=== PATIENT | female | born 1985 | race Hispanic/Latino ===

== ENCOUNTER 2020-01-11 10:14 | Emergency (ER) | payer BC ==
--- OUTSIDE RECORDS SUMMARY | 2020-01-11 10:16 | XMS REPORT ---
:1985 Author Organization [facility] Address [address] [place] [address] Care Team Providers Name Role Phone Unavailable Unavailable Unavailable Payers Payer Name Policy Type Policy Number Effective Date Expiration Date Problems This patient has no known problems. Allergies, Adverse Reactions, Alerts This patient has no known allergies or adverse reactions. Medications This patient has no known medications. Results Test Description Test Time Test Comments Text Results Atomic Results Result Comments - US 2019-10-02 Patient Name: MIC SAAVEDRA Unit No: [id number] PREG 12:07:00 EXAMS: CPT CODE: AFTER [id number] PREG AFTER 1ST TRI [address] [place] [address]'[facility] TRI [address] [place] [place], [place] [address] OBSTETRICAL ULTRASOUND REPORT Pat. Name: MIC SAAVEDRA Pat. No: [id number] Study Date: 10/02/2019 10:51am , Age: 06 1985, 34 Pregnancies: 7, Para 2, Ab 4 LMP: 06/01/2019 GA by LMP: 17w4d GA by US: 17w5d GA Selected: 17w4d (LMP) BETO: 03/07/2020 Referring MD: KATHERYN HAWKINS [employer] Laminator: Miya Enriquez RDMS CPT4: [id number] Admitting MD: KATHERYN HAWKINS Hist/Ind: 1ST SCAN ANATOMY MEASUREMENTS AGE GROWTH EVALUATION Measurement GA Range Srce %for GA Ratios ----- ---- ------- BPD 4.0 cm 18w0d (12c2n-64m0i) Hadl BPD 68% FL/BPD 0.65 HC 14.7 cm 17w5d (74y6v-37f1v) Hadl HC 55% FL/AC 0.22 APD 3.7 cm APD HC/AC 1.25 (1.08 - 1.27) TAD 3.8 cm TAD CI 0.82 (0.70 - 0.86) AC 11.8 cm 17w1d (67h7i-70c7q) Hadl AC 40% FL 2.6 cm 17w4d (42z0q-12j4y) Hadl FL 48% HL 2.5 cm 17w6d (55j2d-46x8l) Robbin HL 54% GA for sonogram 17w5d (95x9z-71x3e) Weight Estimate: based on (HL,BPD,HC,AC,FL) Avg Weight: 207 gm (177-237) Hadlock : 0lbs, 7oz Cervical Length: 3.9 cm Heart Rate: 162 bpm MATERNAL ANATOMY Ovaries LxHxW (cm) Right 3.1 x 2.0 x 3.0 Vol: 9.7cc Left 2.3 x 1.4 x 1.4 Vol: 2.4cc Ovarian Cysts LxHxW (cm) R1: 1.2 x 1.0 x 1.8 Desc: Corpus Luteum CLINICAL SUMMARY Type of Gestation: Menjivar Intrauterine in breech presentation. size is appropriate for gestational age. growth: Consistent with normal growth motion and organs seen: [facility] NAME: MIC SAAVEDRA Radiology Department PHYS: Katheryn Ruby [address] : 1985 AGE: 34 SEX: [place], [place] [address] LOC: Maria DALICIA PHONE #: [phone] EXAM DATE: 10/02/2019 STATUS: REG CLI FAX #: [phone] RAD NO: Page 1 Signed Report (CONTINUED) Patient Name: MIC SAAVEDRA Unit No: [id number] EXAMS: CPT CODE: [id number] US PREG AFTER 1ST TRI 10579 <Continued> somatic activity observed body and limb movements seen Four chamber heart observed Left ventricular outflow tract (LVOT) seen Right ventricular outflow tract (RVOT) seen Regular cardiac rhythm observed Normal intracranial anatomy seen Umbilical cord insertion in fetus seen stomach, Renal Fossa, Bladder and Spine seen Three vessel umbilical cord noted abnormalities observed: None seen at this exam Placental location: Anterior Placental maturity : Grade 2 There is no evidence of placenta previa. Amniotic fluid volume is normal. Uterus and adnexa: No significant abnormality is seen. Thank you for allowing us to participate in the care of this patient. Mau Osorio M.D. Electronic Signature 10/02/2019 12:07pm at 1207 Reported and signed by: Melania Osorio MD CC: Katheryn Hawkins MD Technologist: Miya Enriquez RDMS Probe: Trnscrbd D/ (1207) [email or web address].[email or web address] Orig Print D/T: S: 10/02/2019 (1207) [facility] NAME: MIK SAAVEDRALYN Radiology Department PHYS: Katheryn [address] : 1985 AGE: 34 SEX: [place], [place] [address] LOC: F.RAD PHONE #: [phone] EXAM DATE: 10/02/2019 STATUS: REG CLI FAX #: [phone] RAD NO: Page 2 Signed Report Patient Name: MIC SAAVEDRA Unit No: [id number] EXAMS: CPT CODE: [id number] US PREG AFTER 1ST TRI [address] <Continued> [facility] NAME: MIK SAAVEDRALYN Radiology Department PHYS: Lidia Rubyaret [address] : 1985 AGE: 34 SEX: F [place], [place] [address] LOC: Maria DALICIA PHONE #: [phone] EXAM DATE: 10/02/2019 STATUS: REG CLI FAX #: [phone] RAD NO: Page 3 Signed Report
[2020-01-11] MEDS ORDERED: NA CHLORIDE 0.9% 1,000 ML ONE (10:36)
[2020-01-11 10:42] LABS: Absolute Lymphocytes (CBC) 1.5 K/uL (0.7-4.9); Basophils % 0.3 % (0-1.3); Lymphocytes % 21.1 % (15.3-44.8); MPV 7.8 fL (7.6-11.3); RBC Red Blood Cell Count 3.83 M/uL (3.86-4.86)
[2020-01-11 11:01] LABS: ALT/SGPT 12 U/L (12-78); AST/SGOT 13 U/L (15-37); Albumin 2.6 g/dL (3.4-5.0); Alkaline Phosphatase 57 U/L (45-117); BUN Blood Urea Nitrogen 7 mg/dL (7-18); Bicarbonate 22 mmol/L (21-32); Bilirubin Direct < 0.1 mg/dL (0-0.2); Bilirubin Total 0.3 mg/dL (0.2-1.0); Glucose Level 82 mg/dL (74-106); Lipase 141 U/L (73-393); Potassium 3.4 mmol/L (3.5-5.1); Protein, Total 6.3 g/dL (6.4-8.2); Sodium Level 139 mmol/L (136-145)
[2020-01-11 11:04] LABS: Urine Blood NEGATIVE (NEG); Urine Glucose NEGATIVE (NEG); Urine Protein NEGATIVE (NEG); Urine pH 6.5 (5.0-7.0)
--- NOTE | 2020-01-11 11:28 | ER ---
Nurse's Notes [facility] Name: Yvonne Jarrett Age: 34 yrs Sex: Female : 1985 Arrival Date: 01/11/2020 Time: 10:18 Bed 18 Private MD: Diagnosis: related conditions, unspecified, third trimester;Maternal care for viable fetus in abdominal , third trimester Presentation: 01/11 10:25 Presenting complaint: Patient states: RLQ pain that began at 0800 this AM. PT is 32 ss weeks . Has been evaluated and cleared in L\T\D prior to arrival. Transition of care: patient was not received from another setting of care. Onset of symptoms was January 11, 2020. Risk Assessment: Do you want to hurt yourself or someone else? Patient reports no desire to harm self or others. Initial Sepsis Screen: Does the patient meet any 2 criteria? HR > 90 bpm. Does the patient have a suspected source of infection? No. Patient's initial sepsis screen is negative. Care prior to arrival: None. 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 - Coronavirus screen:: The patient has NOT traveled to [place] in the past 14 days. Proceed with normal triage process as indicated. - Social history:: Smoking status: Patient denies any tobacco usage or history of. - Family history:: not pertinent. - Ebola Screening: : Patient denies exposure to infectious person Patient denies travel to an Ebola-affected area in the 21 days before illness onset. Screenin:42 Abuse screen: Denies threats or abuse. Denies injuries from another. Nutritional ca1 screening: No deficits noted. Tuberculosis screening: No symptoms or risk factors identified. Fall Risk IV access (20 points). Assessment: 10:42 General: Appears in no apparent distress. comfortable, Behavior is calm, cooperative, ca1 appropriate for age. Pain: Complains of pain in right lower quadrant Pain does not radiate. Pain currently is 5 out of 10 on a pain scale. at worst was 10 out of 10 on a pain scale. Quality of pain is described as sharp, Pain began this morning Is intermittent. Neuro: Level of Consciousness is awake, alert, obeys commands, Oriented to person, place, time, situation. Cardiovascular: Heart tones S1 S2 present Capillary refill < 3 seconds Patient's skin is warm and dry. Respiratory: Airway is patent Respiratory effort is even, unlabored, Respiratory pattern is regular, symmetrical, Breath sounds are clear bilaterally. GI: Abdomen is round Bowel sounds present X 4 quads. Abd is soft X 4 quads Abdomen is tender to palpation in right lower quadrant. : Urine is clear. EENT: No deficits noted. No signs and/or symptoms were reported regarding the EENT system. Derm: Skin is intact, is healthy with good turgor, Skin is pink, warm \T\ dry. Musculoskeletal: Circulation, motion, and sensation intact. Capillary refill < 3 seconds. 11:53 Reassessment: Patient appears in no apparent distress at this time. Patient and/or ca1 family updated on plan of care and expected duration. Pain level reassessed. Patient is alert, oriented x 3, equal unlabored respirations, skin warm/dry/pink. Vital Signs: 10:27 BP 86 / 58; Pulse 97; Resp 16; Temp 97.9(TE); Pulse Ox 100% on R/A; Weight 72.57 kg; ss Height 4 ft. 11 in. (149.86 cm); Pain 7/10; 11:47 BP 95 / 63 LA Supine (auto/reg); Pulse 102; Pulse Ox 100% ; ms 11:47 BP 104 / 62 LA Sitting (auto/reg); Pulse 94; Pulse Ox 100% ; ms 11:47 BP 96 / 71 LA Standing (auto/reg); Pulse 97; Pulse Ox 100% ; ms 11:53 BP 97 / 71; Pulse 100; Resp 19 S; Pulse Ox 100% on R/A; ca1 10:27 Body Mass Index 32.32 (72.57 kg, 149.86 cm) ss Vitals: 10:42 Heart Tones 167. ca1 ED Course: 10:18 Patient arrived in ED. mr 10:23 Roel Sadler MD is Attending Physician. clarita 10:27 Triage completed. ss 10:27 Arm band placed on right wrist. ss 10:30 Inserted saline lock: 20 gauge in right antecubital area, using aseptic technique. ca1 ,using aseptic technique. by Stephy Guthrie [facility] Blood collected. 10:31 Fabiana Enamorado, RN is Primary Nurse. ca1 10:42 Patient has correct armband on for positive identification. Placed in gown. Bed in low ca1 position. Call light in reach. Side rails up X 1. Pulse ox on. NIBP on. Warm blanket given. 10:42 No provider procedures requiring assistance completed. ca1 10:54 Urine collected: clean catch specimen, clear, Amount Voided: 60mL. ms 11:43 US OB Limited In Process Unspecified. EDMS 12:06 IV discontinued, intact, bleeding controlled, No redness/swelling at site. Pressure ca1 dressing applied. Administered Medications: 10:35 Drug: NS 0.9% 1000 ml Route: IV; Rate: 1 bolus; Site: right antecubital; ca1 12:04 Follow up: Response: No adverse reaction; IV Status: Completed infusion ca1 12:02 Drug: Potassium Effervescent Tablet 25 mEq Route: PO; ca1 12:04 Follow up: Response: Medication administered at discharge. ca1 Outcome: 11:28 Discharge ordered by . [facility] 12:09 Discharged to home ambulatory, with family. ca1 12:09 Condition: stable 12:09 Discharge instructions given to patient, Instructed on discharge instructions, follow up and referral plans. medication usage, Demonstrated understanding of instructions, follow-up care, medications, Prescriptions given X 1. 12:09 Patient left the ED. ca1 Signatures: Dispatcher [employer] Roel Mondragon MD MD cha Rivera, Mary mr MalaStephy ms, Shelby, TUSHAR RN ss Fabiana Enamorado, TUSHAR RN ca1
--- NOTE | 2020-01-11 11:29 | EDPHYS ---
Physician Documentation [facility] Name: Yvonne Jarrett Age: 34 yrs Sex: Female : 1985 Arrival Date: 01/11/2020 Time: 10:18 Bed 18 Private MD: ED Physician Roel Sadler HPI: 01/11 11:23 This 34 yrs old Female presents to ER via Ambulatory with complaints of 32 wks clarita LRQ pain. 11:23 The patient presents with abdominal pain right lower quadrant, abdominal distention in clarita the upper abdomen, in the lower abdomen. Onset: The symptoms/episode began/occurred this morning, today. The symptoms do not radiate. Associated signs and symptoms: none. The symptoms are described as crampy, dull. Modifying factors: The symptoms are alleviated by nothing, the symptoms are aggravated by nothing. Severity of pain: At its worst the pain was mild in the emergency department the pain is unchanged. The patient has not experienced similar symptoms in the past. 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 - Coronavirus screen:: The patient has NOT traveled to [place] in the past 14 days. Proceed with normal triage process as indicated. - Social history:: Smoking status: Patient denies any tobacco usage or history of. - Family history:: not pertinent. - Ebola Screening: : Patient denies exposure to infectious person Patient denies travel to an Ebola-affected area in the 21 days before illness onset. ROS: 11:23 Constitutional: Negative for fever, chills, and weight loss, Eyes: Negative for injury, clarita pain, redness, and discharge, ENT: Negative for injury, pain, and discharge, Neck: Negative for injury, pain, and swelling, Cardiovascular: Negative for chest pain, palpitations, and edema, Respiratory: Negative for shortness of breath, cough, wheezing, and pleuritic chest pain, Back: Negative for injury and pain, : Negative for injury, bleeding, discharge, and swelling, MS/Extremity: Negative for injury and deformity, Skin: Negative for injury, rash, and discoloration, Neuro: Negative for headache, weakness, numbness, tingling, and seizure, Psych: Negative for depression, anxiety, suicide ideation, homicidal ideation, and hallucinations, Allergy/Immunology: Negative for hives, rash, and allergies, Endocrine: Negative for neck swelling, polydipsia, polyuria, polyphagia, and marked weight changes, Hematologic/Lymphatic: Negative for swollen nodes, abnormal bleeding, and unusual bruising. 11:23 Abdomen/GI: Positive for abdominal pain, abdominal distension. Exam: 11:23 Constitutional: This is a well developed, well nourished patient who is awake, alert, clarita and in no acute distress. Head/Face: Normocephalic, atraumatic. Eyes: Pupils equal round and reactive to light, extra-ocular motions intact. Lids and lashes normal. Conjunctiva and sclera are non-icteric and not injected. Cornea within normal limits. Periorbital areas with no swelling, redness, or edema. ENT: Nares patent. No nasal discharge, no septal abnormalities noted. Tympanic membranes are normal and external auditory canals are clear. Oropharynx with no redness, swelling, or masses, exudates, or evidence of obstruction, uvula midline. Mucous membranes moist. Neck: Trachea midline, no thyromegaly or masses palpated, and no cervical lymphadenopathy. Supple, full range of motion without nuchal rigidity, or vertebral point tenderness. No Meningismus. Chest/axilla: Normal chest wall appearance and motion. Nontender with no deformity. No lesions are appreciated. Cardiovascular: Regular rate and rhythm with a normal S1 and S2. No gallops, murmurs, or rubs. Normal PMI, no JVD. No pulse deficits. Respiratory: Lungs have equal breath sounds bilaterally, clear to auscultation and percussion. No rales, rhonchi or wheezes noted. No increased work of breathing, no retractions or nasal flaring. Back: No spinal tenderness. No costovertebral tenderness. Full range of motion. Pelvic Exam: Normal external genitalia. Speculum exam with closed cervical os, no discharge or bleeding noted. Bimanual exam with normal adnexa, no adnexal or cervical motion tenderness. Normal uterus. Female : Normal external genitalia. Skin: Warm, dry with normal turgor. Normal color with no rashes, no lesions, and no evidence of cellulitis. MS/ Extremity: Pulses equal, no cyanosis. Neurovascular intact. Full, normal range of motion. Neuro: Awake and alert, GCS 15, oriented to person, place, time, and situation. Cranial nerves II-XII grossly intact. Motor strength 5/5 in all extremities. Sensory grossly intact. Cerebellar exam normal. Normal gait. Psych: Awake, alert, with orientation to person, place and time. Behavior, mood, and affect are within normal limits. 11:23 Abdomen/GI: Inspection: distension, Bowel sounds: active, Palpation: mild abdominal tenderness, in the right upper quadrant, left upper quadrant, right lower quadrant and left lower quadrant, Liver: no appreciated palpable abnormalities, Hernia: not appreciated. Vital Signs: 10:27 BP 86 / 58; Pulse 97; Resp 16; Temp 97.9(TE); Pulse Ox 100% on R/A; Weight 72.57 kg; ss Height 4 ft. 11 in. (149.86 cm); Pain 7/10; 11:47 BP 95 / 63 LA Supine (auto/reg); Pulse 102; Pulse Ox 100% ; ms 11:47 BP 104 / 62 LA Sitting (auto/reg); Pulse 94; Pulse Ox 100% ; ms 11:47 BP 96 / 71 LA Standing (auto/reg); Pulse 97; Pulse Ox 100% ; ms 11:53 BP 97 / 71; Pulse 100; Resp 19 S; Pulse Ox 100% on R/A; ca1 10:27 Body Mass Index 32.32 (72.57 kg, 149.86 cm) MDM: 10:23 Patient medically screened. [facility] 11:25 Data reviewed: vital signs, nurses notes, lab test result(s), radiologic studies, [facility] ultrasound. 01/11 10:25 Order name: Basic Metabolic Panel [facility] 01/11 10:25 Order name: CBC with Diff [facility] 01/11 10:25 Order name: Creatinine for Radiology [facility] 01/11 10:25 Order name: Hepatic Function [facility] 01/11 10:25 Order name: Lipase [facility] 01/11 10:25 Order name: Urine Culture [facility] 01/11 10:48 Order name: CBC with Automated Diff; Complete Time: 11:22 EDMS 01/11 10:52 Order name: Urine Dipstick--Ancillary (enter results) 01/11 10:52 Order name: Urine --Ancillary (enter results) 01/11 11:02 Order name: Basic Metabolic Panel; Complete Time: 11:22 [facility] 01/11 11:02 Order name: Liver (Hepatic) Function; Complete Time: 11:22 [facility] 01/11 11:02 Order name: Lipase; Complete Time: 11:22 [facility] 01/11 11:05 Order name: Urine --Ancillary; Complete Time: 11:22 [facility] 01/11 11:05 Order name: Urine Dipstick-Ancillary; Complete Time: 11:22 [facility] 01/11 10:25 Order name: IV Saline Lock; Complete Time: 10:36 [facility] 01/11 10:25 Order name: Labs collected and sent; Complete Time: 10:36 [facility] 01/11 10:25 Order name: FHT's; Complete Time: 10:41 [facility] 01/11 10:25 Order name: Urine Dipstick-Ancillary (obtain specimen); Complete Time: 10:53 [facility] 01/11 10:25 Order name: US OB Limited [facility] 01/11 11:26 Order name: Orthostatics; Complete Time: 11:54 [facility] Administered Medications: 10:35 Drug: NS 0.9% 1000 ml Route: IV; Rate: 1 bolus; Site: right antecubital; ca1 12:04 Follow up: Response: No adverse reaction; IV Status: Completed infusion ca1 12:02 Drug: Potassium Effervescent Tablet 25 mEq Route: PO; ca1 12:04 Follow up: Response: Medication administered at discharge. ca1 Disposition: 01/11/20 11:28 Discharged to Home. Impression: related conditions, unspecified, third trimester, Maternal care for viable fetus in abdominal , third trimester. - Condition is Stable. - Discharge Instructions: Abdominal Pain During , Third Trimester of , Wfyj-ca-Uwvp, Abdominal Pain During , Mfdu-kh-Ocpg, Pelvic Rest. - Prescriptions for Vitamin 27- 0.8 mg Oral Tablet - take 1 tablet by ORAL route once daily; 30 tablet. - Medication Reconciliation Form, Thank You Letter, Antibiotic Education, Prescription Opioid Use, Work release form form. - Follow up: Private Physician; When: 2 - 3 days; Reason: Recheck today's complaints, Continuance of care, Re-evaluation by your physician. - Problem is new. - Symptoms have improved. Signatures: Dispatcher [employer] Roel Mondragon MD MD cha Smirch, Shelby, TUSHAR RN ss Fabiana Enamorado RN RN ca1 Corrections: (The following items were deleted from the chart) 12:09 11:28 01/11/2020 11:28 Discharged to Home. Impression: related conditions, ca1 unspecified, third trimester; Maternal care for viable fetus in abdominal , third trimester. Condition is Stable. Forms are Medication Reconciliation Form, Thank You Letter, Antibiotic Education, Prescription Opioid Use. Follow up: Private Physician; When: 2 - 3 days; Reason: Recheck today's complaints, Continuance of care, Re-evaluation by your physician. Problem is new. Symptoms have improved. clarita
--- NOTE | 2020-01-11 11:49 | RAD REPORT ---
EXAM DESCRIPTION: US - OB Limited - 01/11/2020 11:13 am CLINICAL HISTORY: with abdominal cramping COMPARISON: None FINDINGS: Limited examination was performed to assess for presentation and viability Single live intrauterine is in cephalic presentation. The placenta is anterior. No subchorionic/retroplacental bleed Amniotic fluid index equals 12.9 centimeters Cardiac activity 155 beats per minute Right and left at adnexa unremarkable. IMPRESSION: Viable intrauterine in cephalic presentation
[2020-01-11] MEDS ORDERED: POTASSIUM 25 MEQ EFFERV TAB ONE (12:00)
[2020-01-11 12:28] VITALS: O2SAT 100
[2020-01-11 12:29] VITALS: TEMP 97.9
[2020-01-11 12:31] VITALS: BP 97/71
== END 2020-01-11 12:09 | disposition home or self-care (01) ==
LOC: ER 10:14
DX: O36.7 Maternal care for viable fetus in abdominal pregnancy (principal); Z3A.32 32 weeks gestation of pregnancy
CPT/HCPCS: 87088; 85025; 87086; 80048; 36415; 81025; 80076; 81003; 83690; 76815; 96360; 99284; J7030